=== PATIENT | female | born 1985 | race Caucasian/White ===

== ENCOUNTER 2017-04-30 21:43 | Emergency (ER) | payer BC, OTHER ==
[~2017-04-30] VITALS: Ht 165.1 cm; Wt 72.6 kg
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
[2017-04-30] MEDS ORDERED: ONDANSETRON 4 MG/2 ML VIAL IVP ONE (21:55)
[2017-04-30] MEDS ORDERED: NS(*) 0.9% 1000 ML BAG 1,000 ML IV ONE (21:55)
[2017-04-30] MEDS ORDERED: LORazepam 2 MG/ML VIAL IVP ONE (22:05)
[2017-04-30] MEDS ORDERED: WATER STERILE 10 ML VIAL IM ONLY ONE (22:05)
[2017-04-30] MEDS ORDERED: diphenhydrAMINE 50 MG/ML VIAL IVP ONE (22:05)
[2017-04-30] MEDS ORDERED: OLANZapine 10 MG VIAL IM ONLY ONE (22:05)
[2017-04-30 22:12] LABS: PLATELET COUNT, AUTOMATED 290 K/uL (150-450)
--- NOTE | 2017-04-30 23:15 | RADIOLOGY IMAGING REPORT ---
FACILITY: [facility] PATIENT NAME: Sydnee Barbosa : 1985 MR: [id number] V: [id number] EXAM DATE: ORDERING PHYSICIAN: GAIL GEORGE TECHNOLOGIST: Location: [facility] [place] Patient: Sydnee Barbosa : 1985 Visit/Account:[id number] Date of Sevice: 04/30/2017 EXAMINATION: Chest radiograph HISTORY: Intoxicated, fall COMPARISON: None. FINDINGS: The cardiac silhouette is normal in size. No pneumothorax. Clear lungs. Normal osseous structures. IMPRESSION: Normal chest radiograph. Report Dictated By: Gautam Dias MD at 04/30/2017 11:09 PM Report E-Signed By: Gautam Dias MD at 04/30/2017 11:10 PM WSN:[id number]
--- NOTE | 2017-04-30 23:16 | RADIOLOGY IMAGING REPORT ---
FACILITY: [facility] PATIENT NAME: Sydnee Barbosa : 1985 MR: [id number] V: [id number] EXAM DATE: ORDERING PHYSICIAN: GAIL GEORGE TECHNOLOGIST: Location: [facility] - [place] Patient: Sydnee Barbosa : 1985 Visit/Account:[id number] Date of Sevice: 04/30/2017 EXAMINATION: Pelvis radiograph single view HISTORY: Fall COMPARISON: None. FINDINGS: No fracture. Normal hip and sacroiliac joints. Sacralized right L5 vertebral body noted. Normal soft tissues. IMPRESSION: No acute finding. Report Dictated By: Gautam Dias MD at 04/30/2017 11:10 PM Report E-Signed By: Gautam Dias MD at 04/30/2017 11:11 PM WSN:[id number]
--- NOTE | 2017-04-30 23:18 | RADIOLOGY IMAGING REPORT ---
[place] [facility] [place] Sydnee Barbosa : 1985 MR: [id number] V: [id number] EXAM DATE: ORDERING PHYSICIAN: GAIL GEORGE TECHNOLOGIST: Location: [facility] - [place] Patient: Sydnee Barbosa : 1985 Visit/Account:[id number] Date of Sevice: 04/30/[address] scan without contrast COMPARISONS: None HISTORY: Fall TECHNIQUE: Non-contrast head CT was performed with sagittal and coronal reformations. One of the following dose optimization techniques was utilized in the performance of this exam: autom ated exposure control; adjustment of the mA and/or kV according to patient size; or use of iterative reconstruction technique. Specific details can be referenced in the facility's radiology CT exam ope rational policy. FINDINGS: There is no intracranial hemorrhage, hydrocephalus or midline shift. The basal cisterns, gutierrez-white differentiation, and convexity sulci are maintained. Normal orbital soft tissues. Clear mastoid air cells. Bilateral maxillary sinus mucosal thickening and fluid. Left greater than ri ght ethmoid sinus mucosal thickening. Trace sphenoid sinus secretions. No fracture. Rightward nasal s eptum deviation noted. IMPRESSION: No acute intracranial abnormality. Paranasal sinus mucosal thickening and fluid concerning for acute sinusitis. Report Dictated By: Gautam Dias MD at 04/30/2017 11:12 PM Report E-Signed By: Gautam Dias MD at 04/30/2017 11:15 PM WSN:[id number]
--- NOTE | 2017-04-30 23:22 | RADIOLOGY IMAGING REPORT ---
FACILITY: [facility] - [place] PATIENT NAME: Sydnee Barbosa : 1985 MR: [id number] V: [id number] EXAM DATE: ORDERING PHYSICIAN: GAIL GEORGE TECHNOLOGIST: Location: [facility] - [place] Patient: Sydnee Barbosa : 1985 Visit/Account:[id number] Date of Sevice: 04/30/2017 EXAMINATION: CT Cervical spine without intravenous contrast HISTORY: Fall COMPARISON: None. TECHNIQUE: Axial images were obtained from the skull base through the upper thoracic spine without I V contrast administration. Coronal and sagittal reformatted images were generated from the axial sour ce data. One of the following dose optimization techniques was utilized in the performance of this exam: autom ated exposure control; adjustment of the mA and/or kV according to patient size; or use of iterative reconstruction technique. Specific details can be referenced in the facility's radiology CT exam ope rational policy. FINDINGS: Vertebral bodies and posterior elements: Normal vertebral body heights. No fracture or osseous destr uction. Alignment: Normal. Disc Spaces: Normal. Soft tissues: Normal. Visualized upper chest: Normal. IMPRESSION: No acute fracture or acute abnormality. Report Dictated By: Gautam Dias MD at 04/30/2017 11:15 PM Report E-Signed By: Gautam Dias MD at 04/30/2017 11:18 PM WSN:[id number]
[2017-05-01 04:42] VITALS: BP 138/82
== END 2017-05-01 04:44 | disposition home or self-care (01) ==
LOC: ER 21:54
DX: F10.920 Alcohol use, unspecified with intoxication, uncomplicated (principal); W18.30XA Fall on same level, unspecified, initial encounter; R55 Syncope and collapse
CPT/HCPCS: 70450; 71045; 72125; 72170; 80320; 84703; 85025; 96361; 96372; 96374; 96375; 99284; A4216; J1200; J2060; J2405; J3490; J7030; 82040; 82247; 82310; 82374; 82435; 82565; 82947; 84075; 84132; 84155; 84295; 84450; 84460; 84520

== ENCOUNTER → 2017-04-30 | Outpatient (CLI) | payer BC | LOC: AMB 21:24 | PROVIDERS: ATTEND Nurse Practitioner | DX: F10.129 Alcohol abuse with intoxication, unspecified (principal); W17.89XA Other fall from one level to another, initial encounter | CPT/HCPCS: A0425; A0427 ==